=== PATIENT | female | born 1980 | race Caucasian/White ===

== ENCOUNTER 2017-01-25 19:15 | Emergency (ER) | payer OTHER ==
[2017-01-25 19:45] VITALS: BP 145/81
--- NOTE | 2017-01-25 19:48 | UC ---
Throat Pain/Nasal Geovani HPI - HPI Summary HPI Summary: 36 YEAR OLD FEMALE PRESENTS WITH SEVERE NASAL CONGESTION. - History of Current Complaint Chief Complaint: UCGeneralIllness Stated Complaint: CONGESTION Time Seen by Provider: 01/25/17 19:47 Hx Obtained From: Patient Hx Last Menstrual Period: LAST WK Onset/Duration: Sudden Onset Severity: Moderate Cough: Nonproductive - Allergies/Home Medications Allergies/Adverse Reactions: Allergies Allergy/AdvReac Type Severity Reaction Status Date / Time No Known Allergies Allergy Verified 01/25/17 19:45 Home Medications: Home Medications Whorkik-[id number]-Skipjczm [Excedrin Migraine] 2 tab PO DAILY PRN 01/25/17 [ History Confirmed 01/25/17] PMH/Surg Hx/FS Hx/Imm Hx Previously Healthy: Yes Other History Of: Negative For: HIV, Hepatitis B, Hepatitis C, Anticoagulant Therapy - Surgical History Surgical History: Yes Surgery Procedure, Year, and Place: left arm surgery. C SECTION x1 - Family History Known Family History: Positive: None, Cardiac Disease, Hypertension - Social History Alcohol Use: Rare Substance Use Type: None, Other Smoking Status (MU): Never Smoked Tobacco Type: Cigarettes Amount Used/How Often: ONE PACK PER WEEK Have You Smoked in the Last Year: Yes - Immunization History Most Recent Influenza Vaccination: [id number] Hx Tetanus, Diphtheria Vaccination: Yes Vaccination Up to Date: Yes Review of Systems Constitutional: Negative Skin: Negative Eyes: Negative ENT: Sore Throat, Nasal Discharge, Sinus Congestion, Sinus Pain/Tenderness Respiratory: Cough Cardiovascular: Negative Gastrointestinal: Negative Genitourinary: Negative Motor: Negative Neurovascular: Negative Musculoskeletal: Negative Neurological: Negative Psychological: Negative All Other Systems Reviewed And Are Negative: Yes Physical Exam Triage Information Reviewed: Yes Vital Signs: Initial Vital Signs Temp 36.6 C 01/25/17 19:39 Pulse 71 01/25/17 19:39 Resp 16 01/25/17 19:39 BP 145/81 01/25/17 19:39 Pulse Ox 100 01/25/17 19:39 Vital Signs Reviewed: Yes Eye Exam: Normal ENT: Positive: Pharyngeal erythema, Nasal congestion, Nasal drainage, Sinus tenderness Dental Exam: Normal Neck exam: Normal Neck: Positive: 1 Respiratory Exam: Normal Cardiovascular Exam: Normal Abdominal Exam: Normal Musculoskeletal Exam: Normal Neurological Exam: Normal Psychological Exam: Normal Skin Exam: Normal Throat Pain/Nasal Course/Dx - Differential Dx/Diagnosis Provider Diagnoses: SINUS CONGESTION. COUGH Discharge - Discharge Plan Condition: Stable Disposition: HOME Prescriptions: Albuterol 2.5MG/3ML (0.083%)* [Ventolin 2.5 MG/3 ML NEB.RACHEL*] 2.5 mg INH Q6H PRN #90 neb.rachel PRN Reason: Wheezing Amoxicillin/Clavulanate TAB* [Augmentin TAB 875*] 875 mg PO BID #20 tab Benzonatate [TESSALON 200 MG CAP] 200 mg PO Q8HR PRN #30 cap PRN Reason: Cough Methylprednisolone [Medrol Dosepak 4 MG*] 4 mg PO .SEE MARGARITA INSTRUCTION #21 tab Patient Education Materials: Sinusitis (ED), Acute Diarrhea (ED) Referrals: FRANSISCA Mahoney [Primary Care Provider] -
== END 2017-01-25 20:15 | disposition home or self-care (01) ==
LOC: UCCORT 19:15
DX: R09.81 Nasal congestion (principal); R05 Cough
CPT/HCPCS: 99212; G0463

== ENCOUNTER 2017-04-07 09:15 | Inpatient (IN) | payer OTHER ==
[~2017-04-07 09:15] MED LIST: Buffered Lidocaine 0.9% SYRIN* 5 ML/SYR SYRINGE INTRADERM ONE; DiMENhydriNATE IV* 50 MG/ML VIAL IV PUSH PRN; Famotidine IV* 10 MG/ML 2 ML (20 mg) IV ONE; Naloxone* 0.4 MG/ML 1 ML VIAL IV PRN; Ondansetron INJ* 2 MG/ML VIAL IV PRN; PROCHLORPERAZINE INJ 5 MG/ML 2 ML VIAL IV PRN; Scopolamine 1.5 mg* PATCH TRANSDERM ONE
[2017-04-07] MEDS ORDERED: Buffered Lidocaine 0.9% SYRIN* 5 ML/SYR SYRINGE ONE (10:08)
[2017-04-07] MEDS ORDERED: Heparin VIAL(*) 5000 UNITS/ML VIAL (FIVE THOUSAND) ONE (10:08)
[2017-04-07] MEDS ORDERED: Famotidine IV* 10 MG/ML 2 ML (20 mg) ONE (10:08)
[2017-04-07] MEDS ORDERED: ceFAZolin 1 GM in Dextrose (*) 1 GM/50 ML BAG IVPB ONE (10:09)
[2017-04-07] MEDS ORDERED: Atracurium* 10 MG/ML 10 ML VIAL ONE (10:14)
[2017-04-07] MEDS ORDERED: Midazolam* 1 MG/ML 10 ML VIAL (10 MG) ONE (10:14)
[2017-04-07] MEDS ORDERED: KETAMINE HCL* 50 MG/ML 10 ML VIAL ONE (10:14)
[2017-04-07] MEDS ORDERED: fentaNYL* 50 MCG/ML 5 ML VIAL (250 MCG VIAL) ONE (10:14)
[2017-04-07] MEDS ORDERED: Scopolamine 1.5 mg* PATCH ONE (10:17)
[2017-04-07] MEDS ORDERED: Lidocaine 1% MPF wEPI 200,000* 30 ML SDV ONE (11:26)
[2017-04-07] MEDS ORDERED: Morphine INJ* 10 MG/ML 1 ML CARPUJECT ONE ×3 (12:00→14:38)
[2017-04-07] MEDS ORDERED: Glycopyrrolate IV* 0.2 MG/ML 1 ML VIAL ONE (12:17)
[2017-04-07] MEDS ORDERED: Neostigmine Methylsulfate* 2 MG/2 ML SYRINGE ONE (12:17)
[2017-04-07] MEDS ORDERED: Dexamethasone IV* 4 MG/ML 1 ML (4 MG) ONE (12:17)
[2017-04-07] MEDS ORDERED: Propofol* 10 MG/ML 20 ML BTL IV PUSH ONE (12:17)
[2017-04-07] MEDS ORDERED: Ondansetron INJ* 2 MG/ML VIAL ONE (12:17)
[2017-04-07] MEDS ORDERED: Lidocaine 2% PF * 5 ML VIAL ONE (12:18)
[2017-04-07] MEDS ORDERED: diPHENhydraMINE IV* 50 MG/ML 1 ml VIAL (BENADRYL) SLOW PUSH PRN (13:15)
[2017-04-07] MEDS ORDERED: HYDROmorphone INJ* 2 MG/ML CARPUJECT SYRINGE IV PRN ×2 (13:15→21:20)
[2017-04-07] MEDS ORDERED: Acetaminophen ADULT LIQ* 650 MG/20.3 ML UDC PO PRN (13:15)
[2017-04-07] MEDS ORDERED: fentaNYL* 50 MCG/ML 2 ML VIAL (100 MCG VIAL) ONE ×2 (13:20→14:39)
[2017-04-07] MEDS ORDERED: DiMENhydriNATE IV* 50 MG/ML VIAL ONE (13:20)
[2017-04-07] MEDS ORDERED: Albuterol/Ipratropium NEB.SOL* Albuterol 2.5 MG/Ipratropium 0.5 MG 3 ML INH PRN (13:21)
[2017-04-07] MEDS ORDERED: Albuterol HFA INHALER* 8 gm MDI INH PRN (13:21)
[2017-04-07] MEDS: fentaNYL* 50 MCG/ML 2 ML VIAL (100 MCG VIAL) IV PRN ×7 (13:23→15:07)
[2017-04-07] MEDS: Morphine INJ* 2 MG/ML 1 ML CARPUJECT IV PRN ×5 (13:24→14:52)
--- NOTE | 2017-04-07 13:26 | OP ---
Operative Report - Blank - Operative Report Date of Operation: 04/07/17 Note: Pre-op: Morbid obesity Post-op: Same Procedure: Laparoscopic sleeve gastrectomy Surgeon: Dr. Valladares Cost Coordinator: JOHANNA Gamble Anaesthesia: GETA EBL: Minimal Fluids: LR 1,700 cc Drains: None Catheter: None Specimen: Portion of stomach Findings: See dictated op note
[2017-04-07] MEDS: Ketorolac INJ* 30 MG/ML 1 ML VIAL IV PRN ×2 (16:49→23:53)
[2017-04-07] MEDS ORDERED: Morphine INJ* 4 MG/ML 1 ML CARPUJECT IV ONE (21:29)
[2017-04-07] MEDS: Heparin VIAL(*) 5000 UNITS/ML VIAL (FIVE THOUSAND) SUBCUT SCH (22:01)
[2017-04-07] MEDS: Famotidine IV* 10 MG/ML 2 ML (20 mg) IV SLOW PU SCH (22:03)
[2017-04-07] MEDS: Morphine INJ* 4 MG/ML 1 ML CARPUJECT IV PRN (23:58)
[2017-04-08] MEDS: Morphine INJ* 4 MG/ML 1 ML CARPUJECT IV PRN (02:15)
[2017-04-08] MEDS: Morphine INJ* 2 MG/ML 1 ML CARPUJECT IV PRN ×3 (05:50→10:14)
[2017-04-08] MEDS: Heparin VIAL(*) 5000 UNITS/ML VIAL (FIVE THOUSAND) SUBCUT SCH ×2 (05:56→12:39)
[2017-04-08] MEDS: Ketorolac INJ* 30 MG/ML 1 ML VIAL IV PRN ×2 (06:02→12:38)
[2017-04-08] MEDS: Famotidine IV* 10 MG/ML 2 ML (20 mg) IV SLOW PU SCH (08:13)
--- NOTE | 2017-04-08 09:09 | SURGPN ---
Subjective - Introduction -: Admitted on: 04/07/2017 Patient's surgical date: 04/07/2017 Procedure completed: 04/07/2017 - Medications -: Active Medications Generic Name Dose Route Start Last Admin Trade Name Freq PRN Reason Stop Dose Admin Acetaminophen 650 mg 04/07/17 13:15 Tylenol Adult Liq* PO Q6H PRN Temp > 101 F Or Mild Pain Hydrocodone Bitart/Acetaminophen 15 ml 04/07/17 13:15 Nortab 7.5/325 Liq* PO Q6H PRN PAIN Albuterol 2 puff 04/07/17 13:21 Ventolin Hfa Inhaler* INH Q4H PRN COUGH Albuterol/Ipratropium 1 neb 04/07/17 13:21 Duoneb (Albuterol 2.5 Mg/Ipratropium 0.5 Mg) INH Q6H PRN SHORTNESS OF BREATH Diphenhydramine HCl 25 mg 04/07/17 13:15 Benadryl Iv* SLOW PUSH Q6H PRN ITCHING Famotidine 20 mg 04/07/17 21:00 04/08/17 08:13 Pepcid Iv* IV SLOW PU 20 mg BID YAMILETH Administration Heparin Sodium (Porcine) 5,000 units 04/07/17 22:00 04/08/17 05:56 Heparin Vial(*) SUBCUT 5,000 units Q8HR YAMILETH Administration Hydromorphone HCl 0.5 mg 04/07/17 21:20 Dilaudid Inj* IV Q4H PRN PAIN BREAKTHROUGH Lactated Ringer's 1,000 mls @ 125 mls/hr 04/07/17 06:00 04/07/17 10:24 Lactated Ringers 1000 Ml Bag* IV 125 mls/hr PER RATE YAMILETH Administration Potassium Chloride/Dextrose 1,000 mls @ 125 mls/hr 04/08/17 13:18 D5w 1/2 Ns Kcl 20 Meq 1000 Ml* IV PER RATE YAMILETH Lactated Ringer's 1,000 mls @ 150 mls/hr 04/07/17 14:00 04/08/17 05:49 Lactated Ringers 1000 Ml Bag* IV 04/08/17 13:18 150 mls/hr PER RATE YAMILETH Administration Ketorolac Tromethamine 30 mg 04/07/17 13:15 04/08/17 06:02 Toradol Inj* IV 04/09/17 13:19 30 mg Q6H PRN Administration PAIN Morphine Sulfate 2 mg 04/07/17 21:20 04/08/17 08:12 Morphine Inj (Syringe)* IV 2 mg Q2H PRN Administration PAIN MODERATE Morphine Sulfate 4 mg 04/07/17 21:20 04/08/17 02:15 Morphine Inj (Syringe)* IV 4 mg Q2H PRN Administration PAIN SEVERE Pharmacy Profile Note 1 note 04/10/17 06:00 Scopolamine Patch Remove* PATCH OFF 04/10/17 06:01 ONCE ONE - Comments Comments: Patient seen and examined at bedside. Reports incisional pain at supraumbilical incision, relieved with Morphine. Denies nausea or vomiting. Has been ambulating. Objective - Objective -: Awake and alert, sitting on her chair, in NAD - Intake and Output -: Intake & Output 04/06/17 04/07/17 04/08/17 04/09/17 06:59 06:59 06:59 06:59 Intake Total 3621 Output Total 1700 Balance 1921 Weight 275 lb 6.4 oz Intake: IV Fluids 3621 CEFAZOLIN 3GM IV 100 LR 2021 lr 1500 Oral 0 Output: Urine 1700 Other: # Bowel Movements 0 Surgical Physical Exam - Comments -: Vitals stable, Tmax 99.3, HR 70s Lungs CTA bilat. Heart RRR, no murmurs Abdomen soft, ND. Mild mid-abdomen tenderness, without guarding or rebound. Spuraumbilical incision with old dried blood, dressing removed and changed to dry 2x2. No active bleeding noted. Other incisions C/D/I. Ext. without edema Assessment and Plan - Assessment -: POD#1, s/p laparoscopic sleeve gastrectomy, stable - Plan Additional Comments: Pain control Bariatric clears this AM Ambulate as tolerated GI and DVT prophylaxis
[2017-04-08] MEDS: HYDROcodone/ACET. 7.5/325 LIQ* 15 ML UDC PO PRN ×2 (10:18→16:19)
[2017-04-08] MEDS ORDERED: D5W 1/2 NS KCl 20 Meq 1000 ML* 1,000 ML IV SCH (13:18)
--- NOTE | 2017-04-08 14:17 | PN ---
Progress Note - Progress Note Date of Service: 04/08/17 Note: Feels much better, less pain. Tolerating clear liquids Wants to go home later this afternoon D/C instructions discussed; Rx for Lortab was sent to her pharmacy F/U with Dr. Valladares at [facility] next week as scheduled
[2017-04-08 16:28] VITALS: BP 137/70
--- NOTE | 2017-04-08 22:40 | DS ---
DISCHARGE SUMMARY: DATE OF ADMISSION: 04/07/17 DATE OF DISCHARGE: 04/08/17 PATIENT OF: Dr. Ulises Valladares.* (DICTATED BY JOHANNA BRIAN) ADMISSION DIAGNOSIS: Morbid obesity. DISCHARGE DIAGNOSIS: Morbid obesity. ADMITTING PHYSICIAN: Ulises Valladares MD CONSULTATIONS: None. PROCEDURE: Laparoscopic sleeve gastrectomy on 04/07/17. HISTORY OF PRESENT ILLNESS: Mrs. Sage is a pleasant 37-year-old female, who was evaluated at the [facility] for bariatric and metabolic services and was found to be a good candidate for laparoscopic sleeve gastrectomy. She has been suffering from excessive body weight throughout most of her adult life. She had failed to maintain any weight loss using usual dietary plans or physical exercise. She was found to be a good candidate through the bariatric center and was scheduled for surgery on a later date. HOSPITAL COURSE: The patient was admitted on the same day in anticipation for surgery. She went to the operating room and had a laparoscopic sleeve gastrectomy done on 04/07/17. This surgery went quite smoothly with no immediate complications. After recovery, the patient was sent to the surgical floor for observation overnight. She did extremely well with some incisional tenderness especially on the supraumbilical incision. She also noticed some bloody discharge from the area; however, bleeding had stopped shortly after with some dressing enforcement. She was ambulatory, out of bed, in stable condition. She started clear liquid bariatric diet on the following morning that she tolerated well and was reevaluated in the afternoon and found to be in a stable condition and her abdominal exam was unremarkable. She will be discharged to home to day and will be seen in bariatric center next week for a followup. DISCHARGE MEDICATIONS: Include: 1. Albuterol inhaler 2 puffs q.4 hours as needed for shortness of breath. 2. Albuterol/ipratropium nebulizer q.6 hours as needed for shortness of breath. 3. Celexa 40 mg p.o. q.h.s. 4. Neurontin 600 mg p.o. t.i.d. 5. Lortab Elixir 15 mL p.o. q.6 hours as needed for pain. PROBLEM LIST: Morbid obesity, status post laparoscopic sleeve gastrectomy on . JOHANNA BRIAN [id number]/[facility] #: [id number] ELIN
[2017-04-10] MEDS ORDERED: Scopolamine PATCH Remove* 1 NOTE MISC PATCH OFF ONE (06:00)
== END 2017-04-08 15:15 | disposition home or self-care (01) | DRG 403 ==
LOC: AA 09:54 → SSU 15:21
PROVIDERS: ADMIT Surgery; ATTEND Surgery
PROC: 0DB64Z3 Excision of Stomach, Percutaneous Endoscopic Approach, Vertical (ICD-10-PCS; principal; 2017-04-07 11:15)
DX: E66.01 Morbid (severe) obesity due to excess calories (principal); F32.9 Major depressive disorder, single episode, unspecified; Z68.39 Body mass index [BMI] 39.0-39.9, adult; J45.909 Unspecified asthma, uncomplicated; K58.9 Irritable bowel syndrome, unspecified; F41.9 Anxiety disorder, unspecified; G47.33 Obstructive sleep apnea (adult) (pediatric); Z82.61 Family history of arthritis; Z83.3 Family history of diabetes mellitus; Z82.49 Family history of ischemic heart disease and other diseases of the circulatory system; Z82.62 Family history of osteoporosis; Z72.89 Other problems related to lifestyle; Z87.891 Personal history of nicotine dependence
CPT/HCPCS: 43775; 81025; 88307; A9270-GY; C1776; J0690; J1100; J1170; J1240; J1644; J1885; J2001; J2250; J2270; J2405; J2704; J3010

== ENCOUNTER → 2017-04-18 14:50 | Emergency (ER) | payer OTHER ==
[~2017-04-18 14:50] MED LIST changes: -Buffered Lidocaine 0.9% SYRIN* 5 ML/SYR SYRINGE INTRADERM ONE; +Cephalexin CAP* 250 MG PO ONE; -DiMENhydriNATE IV* 50 MG/ML VIAL IV PUSH PRN; -Famotidine IV* 10 MG/ML 2 ML (20 mg) IV ONE; +Morphine INJ* 2 MG/ML 1 ML CARPUJECT IV ONE; +Morphine INJ* 2 MG/ML 1 ML CARPUJECT ONE; +Morphine INJ* 2 MG/ML 1 ML SYRINGE (TWO MG - NEW SYRINGE VERSION) IV ONE; -Naloxone* 0.4 MG/ML 1 ML VIAL IV PRN; -Ondansetron INJ* 2 MG/ML VIAL IV PRN; -PROCHLORPERAZINE INJ 5 MG/ML 2 ML VIAL IV PRN; -Scopolamine 1.5 mg* PATCH TRANSDERM ONE; +oxyCODONE/Acetamin 5/325 MG* TAB PO ONE
[2017-04-18 16:48] LABS: ABS Basophils 0 10^3/ul (0-0.2); ABS Eosinophils 0.3 10^3/ul (0-0.6); ABS Lymphocytes 1.7 10^3/ul (1.0-4.8); ABS Monocytes 0.4 10^3/ul (0-0.8); ABS Neutrophils 4.2 10^3/ul (1.5-7.7); ABS Nucleated RBC 0 10^3/ul; Eosinophil % 4.2 % (0-6); Hematocrit 37 % (35-47); Hemoglobin 12.5 g/dl (12.0-16.0); Lymphocyte % 25.6 % (25-47); Mean Corpuscular HGB Conc 34 g/dl (31-36); Mean Corpuscular Hemoglobin 31 pg (27-31); Mean Corpuscular Volume 90 fL (80-97); Mean Platelet Volume 8 um3 (7.4-10.4); Nucleated Red Blood Cells % 0; Platelet Count 271 10^3/ul (150-450); Red Cell Distribution Width 13 % (10.5-15); White Blood Count 6.7 10^3/ul (3.5-10.8)
[2017-04-18 17:00] LABS: EGFR Non-African American 95.2 (>60)
--- NOTE | 2017-04-18 18:12 | RAD ---
INDICATION: Abdominal pain and lump with red skin. 11 days postop gastric sleeve gastrectomy bariatric surgery. COMPARISON: November 10, 2011 CT TECHNIQUE: Multidetector CT images were obtained from the lung bases to the ischial tuberosities. Oral contrast administered. Assessment of the visceral limited without IV contrast. REPORT: Clear visualized lung bases. Top normal heart size. The liver, gallbladder, pancreas, and spleen are unremarkable. Postsurgical change of partial gastric resection. Enteric contrast extends to the ileocecal valve. No CT abnormality of the residual stomach, small bowel, or appendix. Mild colonic diverticulosis without findings of diverticulitis. Physiologic small volume of free fluid in the cul-de-sac. Negative for free air or hernias. At the LEFT para midline anterior abdominal wall just above the umbilicus there is a 4.8 cm AP by 2.6 cm transverse by 2.8 cm cephalocaudal lobular margin collection suspicious for hematoma at a trocar site. The collection extends from the rectus femoris fascia at the deep margin to just below the skin at the superficial margin. Secondary infection is not excluded. Normal adrenal glands. 2 mm nonobstructing calyceal stone lower pole LEFT kidney. Negative for focal renal lesions. Unremarkable nondilated ureters and partially distended urinary bladder as well as the anteverted uterus and adnexal regions. Pelvic phleboliths noted. Negative for lymphadenopathy. Normal diameter abdominal aorta and iliac arteries. Physiologic partial distention of the IVC. Negative for suspicious osseous lesions. IMPRESSION: 1. Postsurgical change of gastric sleeve gastrectomy without CT evidence for enteric leak or obstruction. 2. Subcutaneous tissue plane hematoma at a LEFT para midline supraumbilical trocar site with secondary infection is not excluded given the clinical context. Results discussed with Dr. Valladares 04/18/2017 6:00 PM EST
[2017-04-18 18:57] VITALS: BP 134/84
--- NOTE | 2017-04-19 10:56 | ED ---
Giselle Sifuentes Edward, scribed for Jose Bautista MD on 04/18/17 at 1608 . Abdominal Pain/Female - HPI Summary HPI Summary: 37 y/o female presents to the ED c/o ABD pain starting immediately s/p surgery. Pt also c/o diffuse ABD pressure. Pt had gastric sleeve done 04/07/17. Associated sx: swelling, erythema and ecchymosis at ABD s/p surgery. Dr. Valladares is supposed to meet her here. The pain is aggravated with touch. FHx HTN. - History of Current Complaint Chief Complaint: EDAbdPain Stated Complaint: POSSIBLE HERNIA Time Seen by Provider: 04/18/17 16:05 Hx Obtained From: Patient Hx Last Menstrual Period: LAST WK Onset/Duration: Lasting Weeks, Still Present Timing: Constant Pain Intensity: 7 Pain Scale Used: 0-10 Numeric Location: Umbilical Aggravating Factor(s): Other: - touch Alleviating Factor(s): Nothing Associated Signs and Symptoms: Positive: Other: - ecchymosis, swelling, erythema at ABD Allergies/Adverse Reactions: Allergies Allergy/AdvReac Type Severity Reaction Status Date / Time No Known Allergies Allergy Verified 04/07/17 10:03 Home Medications: Home Medications Omeprazole CAP* [Prilosec CAP* 20 MG] 20 mg PO BID 04/18/17 [History Confirmed 04/18/17] PMH/Surg Hx/FS Hx/Imm Hx Previously Healthy: No Endocrine/Hematology History: Denies: Hx Anticoagulant Therapy, Hx Diabetes, Hx Thyroid Disease Cardiovascular History: Denies: Hx Congestive Heart Failure, Hx Deep Vein Thrombosis, Hx Hypertension , Hx Myocardial Infarction, Hx Pacemaker/ICD Respiratory History: Reports: Hx Asthma - Allergy induced asthma. Denies: Hx Chronic Obstructive Pulmonary Disease (COPD), Hx Lung Cancer, Hx Pneumonia, Hx Pulmonary Embolism GI History: Reports: Hx Irritable Bowel - HX OF IN THE PAST Denies: Hx Gall Bladder Disease, Hx Gastrointestinal Bleed, Hx Ulcer, Hx Urosepsis History: Denies: Hx Kidney Stones, Hx Renal Disease Musculoskeletal History: Reports: Other Musculoskeletal History - SPINAL STENOSIS Sensory History: Denies: Hx Contacts or Glasses, Hx Hearing Aid Opthamlomology History: Denies: Hx Contacts or Glasses Neurological History: Reports: Hx Migraine - She states that she has migraine and cluster headaches treated with massage Denies: Hx Dementia, Hx Seizures, Hx Transient Ischemic Attacks (TIA) Psychiatric History: Reports: Hx Anxiety Denies: Hx Depression, Hx Schizophrenia, Hx Bipolar Disorder - Surgical History Surgery Procedure, Year, and Place: left arm surgery. C SECTION x1 Hx Anesthesia Reactions: No Infectious Disease History: No Infectious Disease History: Denies: Hx Clostridium Difficile, Hx Hepatitis, Hx Human Immunodeficiency Virus (HIV), Hx of Known/Suspected MRSA, Hx Shingles, Hx Tuberculosis, Hx Known/ Suspected VRE, Hx Known/Suspected VRSA, History Other Infectious Disease, Traveled Outside the [place] in Last 30 Days - Family History Known Family History: Positive: Cardiac Disease, Hypertension - Social History Alcohol Use: Rare Substance Use Type: Reports: None, Other Smoking Status (MU): Never Smoked Tobacco Type: Cigarettes Amount Used/How Often: ONE PACK PER WEEK Have You Smoked in the Last Year: Yes Review of Systems Constitutional: Negative Eyes: Negative ENT: Negative Cardiovascular: Negative Respiratory: Negative Positive: Abdominal Pain - and mass Genitourinary: Negative Musculoskeletal: Negative Positive: Bruising - at ABD mass Neurological: Negative Psychological: Normal All Other Systems Reviewed And Are Negative: Yes Physical Exam - Summary Physical Exam Summary: VITAL SIGNS: Reviewed. GENERAL: Patient is a well-developed and nourished female who is lying comfortable in the stretcher. Patient is not in any acute respiratory distress. HEAD AND FACE: Normocephalic and atraumatic. EYES: PERRLA, EOMI x 2, No injected conjunctiva. EARS: Hearing grossly intact. Ear canals and tympanic membranes are WNL. MOUTH: Oropharynx within normal limits. NECK: Supple, trachea is midline, no adenopathy, no JVD. CHEST: Symmetric, no tenderness at palpation LUNGS: Clear to auscultation bilaterally. No wheezing or crackles. CVS: RRR, S1 and S2 present, no murmurs or gallops appreciated. ABDOMEN: Soft, tenderness to palpation. ABD mass in the periumbilical area. There is also some ecchymosis there. EXTREMITIES: FROM in all major joints, no edema, no cyanosis or clubbing. NEURO: Alert and oriented x 3. No acute neurological deficits. Speech is normal. SKIN: Dry and warm Triage Information Reviewed: Yes Vital Signs On Initial Exam: Initial Vitals Temp Pulse Resp BP Pulse Ox 98.3 F 79 16 134/90 98 04/18/17 14:59 04/18/17 14:59 04/18/17 14:59 04/18/17 14:59 04/18/17 14:59 Vital Signs Reviewed: Yes Diagnostics - Vital Signs Vital Signs Temp Pulse Resp BP Pulse Ox 04/18/17 14:59 98.3 F 79 16 134/90 98 - Laboratory Result Diagrams: 04/18/17 16:30 04/18/17 16:30 Lab Statement: Any lab studies that have been ordered have been reviewed, and results considered in the medical decision making process. - CT ABD/PEL CT CT Interpretation: Positive (See Comments) - 1. Postsurgical change of gastric sleeve gastrectomy without CT evidence for enteric leak or obstruction. 2. Subcutaneous tissue plane hematoma at a LEFT para midline supraumbilical trocar site with secondary infection is not excluded given the clinical context. CT Interpretation Completed By: Radiologist - ED PHYSICIAN REVIEWS AND AGREES Abdominal Pain Fem Course/Dx - Course Course Of Treatment: 37 y/o female presents to the ED c/o ABD pain starting immediately s/p surgery. Pt also c/o diffuse ABD pressure. Pt had gastric sleeve done 04/07/17. Associated sx: swelling, erythema and ecchymosis at ABD s/ p surgery. Dr. Valladares is supposed to meet her here. The pain is aggravated with touch. FHx HTN. ABD/PEL CT SHOWS 1. Postsurgical change of gastric sleeve gastrectomy without CT evidence for enteric leak or obstruction. 2. Subcutaneous tissue plane hematoma at a LEFT para midline supraumbilical trocar site with secondary infection is not excluded given the clinical context. Test results without sig except CRP - 5.04. Dr. Valladares aspirated the hematoma after the CT and sent blood cultures. He recommends we d/c the pt home with Keflex and Percocet. Pt will be d/c home with f/u at Dr. Valladares's office. - Diagnoses Provider Diagnoses: Abdominal pain, Hematoma Discharge - Discharge Plan Condition: Stable Disposition: HOME Prescriptions: Cephalexin CAP* [Keflex CAP*] 500 mg PO QID #28 cap oxyCODONE/Acetamin 5/325 MG* [Percocet 5/325 TAB*] 1 tab PO Q6H PRN #15 tab MDD 4 PRN Reason: Pain Patient Education Materials: Acute Abdominal Pain (ED), Abdominal Pain (ED), Hematoma (ED) Referrals: FRANSISCA Mahoney [Primary Care Provider] - 3 Days (PLEASE F/U IN 3-5 DAYS) Ulises Valladares MD [Medical Doctor] - 2 Days (PLEASE F/U IN 1-2 DAYS) The documentation as recorded by the tremaineibGiselle pablo Edward accurately reflects the service I personally performed and the decisions made by , Jose Bautista MD.
== END | disposition home or self-care (01) ==
LOC: ED 14:50
DX: R10.9 Unspecified abdominal pain (principal); T14.8XXA Other injury of unspecified body region, initial encounter; X58.XXXA Exposure to other specified factors, initial encounter; Y92.9 Unspecified place or not applicable; F17.210 Nicotine dependence, cigarettes, uncomplicated
CPT/HCPCS: 36415; 74176; 80053; 83690; 85025; 86140; 87070; 87205; 96374; 96376; 99282; A9270-GY; J2270

== ENCOUNTER 2017-06-28 12:04 | Emergency (ER) | payer MEDICAID, OTHER ==
[2017-06-28 12:36] VITALS: BP 133/81
--- NOTE | 2017-06-28 13:18 | UC ---
General HPI - HPI Summary HPI Summary: pt had gastric sleeve by Dr Valladares on 04/07/17. pt states that for the past 2 weeks, she has been having increased epigastric burning that is now "severe". pt states she had an upper GI on Wednesday but no results are available yet. it was done at [facility]. she was to have out pt labs but didn't "because I feel to bad to get it done". admits to some episodic nausea but has no vomiting or diarrhea. she has been being tx with Omeprazol, Pepto Bismal and zofran. She is awaiting clearance for Carafate. Denies any CP, SOB and fever. Nothing makes her symptoms any better or worse. - History of Current Complaint Chief Complaint: UCGI Stated Complaint: STOMACH PAIN Time Seen by Provider: 06/28/17 12:57 Hx Obtained From: Patient Hx Last Menstrual Period: 06/27/17 Onset/Duration: Gradual Onset Pain Intensity: 6 Associated Signs & Symptoms: Positive: Nausea. Negative: Back Pain, Cough, Chest Pain, Diarrhea, Dysuria, Fever, Vomiting - Allergy/Home Medications Allergies/Adverse Reactions: Allergies Allergy/AdvReac Type Severity Reaction Status Date / Time No Known Allergies Allergy Verified 04/07/17 10:03 Home Medications: Home Medications Bismuth Subsalicylate [Pepto-Bismol] 15 ml PO TID 06/28/17 [History Confirmed ] PMH/Surg Hx/FS Hx/Imm Hx - Additional Past Medical History Additional PMH: Bronchospasm GI/ History: Gastroesophageal Reflux Psychological History: Depression Other History Of: Negative For: HIV, Hepatitis B, Hepatitis C, Anticoagulant Therapy - Surgical History Surgical History: Yes Surgery Procedure, Year, and Place: left arm surgery. C SECTION x1. GASTRIC SLEEVE - Family History Known Family History: Positive: None, Cardiac Disease, Hypertension - Social History Lives: With Family Alcohol Use: None Substance Use Type: None Smoking Status (MU): Light Every Day Tobacco Smoker Type: Cigarettes Amount Used/How Often: ONE PACK PER WEEK Have You Smoked in the Last Year: Yes When Did the Patient Quit Smoking/Using Tobacco: 01/2017 Household Exposure Type: Cigarettes - Immunization History Most Recent Influenza Vaccination: [id number] Most Recent Pneumonia Vaccination: HAS NOT HAD Hx Tetanus, Diphtheria Vaccination: Yes Vaccination Up to Date: Yes Review of Systems Constitutional: Negative Skin: Negative Eyes: Negative ENT: Negative Respiratory: Negative Cardiovascular: Negative Gastrointestinal: Abdominal Pain - Burning in epigastrum, Nausea Genitourinary: Negative Motor: Negative Neurovascular: Negative Musculoskeletal: Negative Neurological: Negative Psychological: Negative Is Patient Immunocompromised?: No All Other Systems Reviewed And Are Negative: Yes Physical Exam Triage Information Reviewed: Yes Appearance: Well-Appearing Vital Signs: Initial Vital Signs Temp 97.9 F 06/28/17 12:28 Pulse 78 06/28/17 12:28 Resp 18 06/28/17 12:28 BP 133/81 06/28/17 12:28 Pulse Ox 98 06/28/17 12:28 Vital Signs Reviewed: Yes Eyes: Positive: Conjunctiva Clear ENT: Positive: Pharynx normal, TMs normal. Negative: Nasal congestion, Nasal drainage Neck: Positive: Supple, Nontender, No Lymphadenopathy Respiratory: Positive: Lungs clear, Normal breath sounds Cardiovascular: Positive: RRR, No Murmur Abdomen Description: Positive: No Organomegaly, Soft, Other: - Mild epigastric tenderness.. Negative: Bruit, CVA Tenderness (R), CVA Tenderness (L), Distended , Guarding Bowel Sounds: Positive: Present Musculoskeletal: Positive: ROM Intact Neurological: Positive: Alert Psychological: Positive: Age Appropriate Behavior Skin Exam: Normal Diagnostics - Laboratory Diagnostic Studies Completed/Ordered: STOOL FOR OCCULT BLOOD IS NEGATIVE. CBC WITH DIFF, CMP AND LIPASE ARE PENDING. Course/Dx - Course Course Of Treatment: Call place d to Dr Valladares at [facility] [phone] at 1:[address] Valladares in with a pt. Message left to have him call me back to discuss a pt of his here right now. office called back about 1:17pm to get pt name and hx. they mentioned pt advised to get labs done. again, they will have Dr Valladares call me back. 13:29 Dr Valladares called back. I advised of her hx, PE, current tx and upper GI on Wednesday at [facility] that is still pending. We reviewed pt VS as well. Since pt is non toxic and VS are unremarkable and she has no acute abdomen, he request pt get her CD from [facility] radiology, we will draw her CBC, CMP and Lipase here and I will do a stool for occult blood so all of this will be available to him on her f/u appt tomorrow. he also request I increase her Omeprazole to 40mg BID as this is c/w her ongoing reflux. pt will go to ER for any changes or worsening. - Differential Dx - Multi-Symptom Provider Diagnoses: Epigatric burning post gastric sleeve, GERD Discharge - Sign-Out/Discharge Documenting (check all that apply): Discharge/Admit/Transfer - Discharge Plan Condition: Stable Disposition: HOME Prescriptions: Omeprazole CAP* [Prilosec CAP* 20 MG] 40 mg PO BID 7 Days #28 cap. Patient Education Materials: Gastroesophageal Reflux Disease (ED), Acute Abdominal Pain (DC) Referrals: FRANSISCA DayOracio [Primary Care Provider] - Additional Instructions: FOLLOW UP DR VALLADARES TOMORROW AT 3:34 PM SCHEDULED. INCREASE THE PRILOSEC(OMEPRAZOLE) TO 40MG TWICE DAILY PER DR VALLADARES. PRESCRIPTION SENT. GO DIRECTLY TO [facility] AND GET YOUR UPPER GI DISC AND TAKE IT TO DR VALLADARES. GO TO THE ER IMMEDIATELY FOR ANY CHANGES, WORSENING OR IF YOU FEEL NECESSARY PRIOR TO YOU FOLLOW UP APPOINTMENT TOMORROW. - Billing Disposition and Condition Condition: STABLE Disposition: HOME
[2017-06-28] MEDS ORDERED: Omeprazole CAP* 20 MG PO ONE (13:34)
[2017-06-28 18:26] LABS: Hematocrit 40 % (35-47); Mean Corpuscular HGB Conc 35 g/dl (31-36); Mean Corpuscular Hemoglobin 31 pg (27-31); Mean Corpuscular Volume 90 fL (80-97); Red Blood Count 4.48 10^6/ul (4.0-5.4); Red Cell Distribution Width 13 % (10.5-15); White Blood Count 8.3 10^3/ul (3.5-10.8)
[2017-06-28 18:36] LABS: EGFR Non-African American 111.9 (>60)
[2017-06-28 18:48] LABS: ABS Basophils 0 10^3/ul (0-0.2); ABS Eosinophils 0.3 10^3/ul (0-0.6); ABS Monocytes 0.3 10^3/ul (0-0.8); ABS Neutrophils 5.7 10^3/ul (1.5-7.7); ABS Nucleated RBC 0 10^3/ul; Lymphocyte % 24.4 % (25-47); Mean Platelet Volume 10.1 um3 (7.4-10.4); Nucleated Red Blood Cells % 0.1; Platelet Count 201 10^3/ul (150-450)
== END 2017-06-28 14:24 | disposition home or self-care (01) ==
LOC: UCCORT 12:04
DX: R10.13 Epigastric pain (principal); K21.9 Gastro-esophageal reflux disease without esophagitis; Z98.84 Bariatric surgery status; F17.210 Nicotine dependence, cigarettes, uncomplicated
CPT/HCPCS: 36415; 80053; 82270; 83690; 85025; 99212; A9270-GY; G0463

== ENCOUNTER 2019-05-17 15:31 | Emergency (ER) | payer OTHER ==
[2019-05-17] MEDS ORDERED: Ibuprofen TAB* 600 MG PO ONE (16:14)
[2019-05-17] MEDS ORDERED: NS 0.9% 1000 ML** 1,000 ML IV ONE (16:14)
--- NOTE | 2019-05-17 16:21 | UC ---
HPI Febrile Illness - HPI Summary HPI Summary: 39-year-old female comes in with a chief complaint of flank pain or fevers dysuria and feeling ill. 4 days ago started with some left flank pain. Than she started having some burning with urination. Now it's progressed to having both flanks pain and also suprapubic pain and having fevers and chills. She took some acetaminophen just prior to arrival she still having generalized chills. She has a history of a kidney stone about 10 years ago. - History of Current Complaint Chief Complaint: [facility] Time Seen by Provider: 05/17/19 16:07 Hx Last Menstrual Period: 05/09/19 Pain Intensity: 9 - Allergy/Home Medications Allergies/Adverse Reactions: Allergies Allergy/AdvReac Type Severity Reaction Status Date / Time seasonal Allergy Congestion Uncoded 05/17/19 16:00 Home Medications: Home Medications Albuterol HFA INHALER* [Ventolin HFA Inhaler*] 2 puff INH Q4H PRN 12/06/15 [ History Confirmed 05/17/19] Gabapentin CAP(*) [Neurontin 300 CAP(*)] 800 mg PO TID PRN 04/01/17 [History Confirmed 05/17/19] Acetaminophen [Acetaminophen Extra Strength] 1,000 mg PO ONCE PRN 05/17/19 [ History Confirmed 05/17/19] Omeprazole CAP (NF) [Prilosec CAP* 20 MG] 40 mg PO DAILY 05/17/19 [History Confirmed 05/17/19] Ondansetron TAB* [Zofran 4 MG Tab*] 4 mg PO Q6H PRN 05/17/19 [History Confirmed 05/17/19] PMH/Surg Hx/FS Hx/Imm Hx Previously Healthy: Yes GI/ History: Kidney Stones Other History Of: Negative For: HIV, Hepatitis B, Hepatitis C, Anticoagulant Therapy - Surgical History Surgical History: Yes Surgery Procedure, Year, and Place: left arm surgery. C SECTION x1. GASTRIC SLEEVE - Family History Known Family History: Positive: None, Cardiac Disease, Hypertension - Social History Alcohol Use: None Substance Use Type: None Smoking Status (MU): Light Every Day Tobacco Smoker Type: Cigarettes Amount Used/How Often: ONE PACK PER WEEK Have You Smoked in the Last Year: Yes When Did the Patient Quit Smoking/Using Tobacco: 01/2017 Household Exposure Type: Cigarettes - Immunization History Most Recent Influenza Vaccination: [id number] Most Recent Pneumonia Vaccination: HAS NOT HAD Hx Tetanus, Diphtheria Vaccination: Yes Vaccination Up to Date: Yes Review of Systems All Other Systems Reviewed And Are Negative: Yes Constitutional: Positive: Fever, Chills, Other - see hpi Skin: Positive: Negative Eyes: Positive: Negative ENT: Positive: Negative Respiratory: Positive: Negative Cardiovascular: Positive: Negative Gastrointestinal: Positive: Abdominal Pain, Other - see hpi Genitourinary: Positive: Dysuria Motor: Positive: Negative Neurovascular: Positive: Negative Musculoskeletal: Positive: Negative Neurological/Mental Status: Positive: Negative Psychological: Positive: Negative Is Patient Immunocompromised?: No Physical Exam Triage Information Reviewed: Yes Appearance: Well-Nourished, Ill-Appearing - mild/moderate, Pain Distress - mild , Other: - Patient is shivering. Vital Signs: Initial Vital Signs Temp 100.2 F 05/17/19 15:50 Pulse 96 05/17/19 15:50 Resp 20 05/17/19 15:50 BP 148/92 05/17/19 15:50 Pulse Ox 100 05/17/19 15:50 Vital Signs Reviewed: Yes Eye Exam: Normal Eyes: Positive: Conjunctiva Clear Neck: Positive: Supple Respiratory: Positive: Lungs clear, Normal breath sounds, No respiratory distress Cardiovascular: Positive: RRR Abdomen Description: Positive: Other: - Mild tenderness to palpation in the suprapubic area. Also tender palpation left flank. Bowel Sounds: Positive: Hypoactive Musculoskeletal: Positive: Strength Intact, ROM Intact Neurological: Positive: Alert, Muscle Tone Normal Psychological: Positive: Normal Response To Family, Age Appropriate Behavior Skin Exam: Normal Course/Dx - Course Course Of Treatment: Patient most probably has pyelonephritis with potential sepsis. Unsure whether or not she has a kidney stone. Patient was transported to the [facility] by ambulance. - Diagnoses Provider Diagnosis: Pain, flank, bilateral, Fever, UTI (urinary tract infection) Discharge ED - Sign-Out/Discharge Documenting (check all that apply): Patient Departure All imaging exams completed and their final reports reviewed: No Studies - Discharge Plan Condition: Stable Disposition: TRANS HIGHER LVL OF CARE FAC Referrals: Katie Dhillon MD [Primary Care Provider] - - Billing Disposition and Condition Condition: STABLE Disposition: Trans Higher Lvl of Care Fac
[2019-05-17 16:31] VITALS: BP 140/92
== END 2019-05-17 16:41 | disposition short-term general hospital (02) ==
LOC: UCCORT 15:31
DX: N39.0 Urinary tract infection, site not specified (principal); R10.9 Unspecified abdominal pain; R50.9 Fever, unspecified; F17.210 Nicotine dependence, cigarettes, uncomplicated; Z91.09 Other allergy status, other than to drugs and biological substances
CPT/HCPCS: 81003; 87077; 87086; 87186; 99213; A9270-GY; G0463